=== PATIENT | male | born 1970 | race Caucasian/White ===

== ENCOUNTER 2017-05-18 19:41 | Emergency (ER) | payer SELFPAY ==
--- NOTE | 2017-05-18 20:16 | UC ---
Cardiac HPI - HPI Summary HPI Summary: PT presents with sister. Pt states since Thursday has intermittent left sided chest pain, squeezing Pt had a cardiac cath [address] [facility] - no stents. Pt states has intermittently had paresthesia lUE - states felt like band around left wwrist earlier. sx worse with avctivity and movement. No fever, chills. No sob Pt does not have a PCP has not seen MD in years since stent. Pt take ASA 81mg QD inclduing today At present, no discomfort or sx Pt's medications reviewed this visit - History of Current Complaint Chief Complaint: UCChestPain Stated Complaint: CHEST & LEFT ARM PAIN Time Seen by Provider: 05/18/17 19:58 Hx Obtained From: Patient, Family/Surveyor'S Assistant Onset/Duration: Gradual Onset, Lasting Days Timing: Intermittent Episodes Lasting: Initial Severity: Mild Current Severity: Mild Chest Pain Location: Discrete at:, Left Anterior Character: Tightness Aggravating Factor(s): Exertion Alleviating Factor(s): Rest Associated Signs & Symptoms: Positive: Chest Pain - Allergy/Home Medications Allergies/Adverse Reactions: Allergies Allergy/AdvReac Type Severity Reaction Status Date / Time No Known Allergies Allergy Verified 05/18/17 19:54 Home Medications: Home Medications Aspirin EC Low Dose* [Ecotrin EC Low Dose 81 MG*] 81 mg PO DAILY 05/18/17 [ History Confirmed 05/18/17] Gnc 1 jessy PO DAILY 05/18/17 [History] PMH/Surg Hx/FS Hx/Imm Hx Previously Healthy: Yes Cardiovascular History: Cardiac Disease, Hypertension - Surgical History Surgical History: Yes Surgery Procedure, Year, and Place: cardiac cath-no stents - Family History Known Family History: Positive: Hypertension - Social History Occupation: Employed Full-time Lives: With Family Alcohol Use: Rare Substance Use Type: Marijuana Substance Use Comment - Amount & Last Used: daily usage Smoking Status (MU): Heavy Every Day Tobacco Smoker Type: Smokeless Tobacco Amount Used/How Often: 1 can per week Have You Smoked in the Last Year: Yes When Did the Patient Quit Smoking/Using Tobacco: since age 13 Review of Systems Constitutional: Negative Skin: Negative Cardiovascular: Chest Pain Neurovascular: Other - paresthesia lue All Other Systems Reviewed And Are Negative: Yes Physical Exam Triage Information Reviewed: Yes Appearance: Well-Appearing, No Pain Distress, Well-Nourished Vital Signs: Initial Vital Signs Temp 98 F 05/18/17 19:47 Pulse 96 05/18/17 19:47 Resp 16 05/18/17 19:47 BP 138/99 05/18/17 19:47 Pulse Ox 100 05/18/17 19:47 Vital Signs Reviewed: Yes Eye Exam: Normal Eyes: Positive: Conjunctiva Clear ENT Exam: Normal ENT: Positive: Normal ENT inspection, Hearing grossly normal, Pharynx normal, TMs normal Dental Exam: Normal Neck exam: Normal Neck: Positive: Supple, Nontender Respiratory Exam: Normal Respiratory: Positive: Chest non-tender, Lungs clear, Normal breath sounds, No respiratory distress, No accessory muscle use Cardiovascular Exam: Normal Cardiovascular: Positive: RRR, No Murmur Abdominal Exam: Normal Abdomen Description: Positive: Nontender, No Organomegaly, Soft Bowel Sounds: Positive: Present Musculoskeletal Exam: Normal Neurological Exam: Normal Neurological: Positive: Alert Psychological Exam: Normal Skin Exam: Normal Diagnostics - EKG Cardiac Rate: NL - 95 Cardiac Rhythm: Sinus: Normal Ectopy: PVCs ST Segment: Normal - Assessment/Plan Course Of Treatment: Pt with progressive episodic left sided chest pain with radiation to left arm. pt with h/o cardiac dx, stent years ago. Recommend to ED - pt adamant does not want EMS. to drive. d/w pt risks of leaving - pt leaving [facility]. Will give ASA 81mg x 3 in UC. call to [facility] ED - pt's request - Clinical Impression Provider Diagnoses: chest pain Discharge - Discharge Plan Condition: Stable Disposition: AGAINST MEDICAL ADVICE Patient Education Materials: Chest Pain (ED), Against Medical Advice (ED) Referrals: Hernán Doran DO [Medical Doctor] - Additional Instructions: The doctor that evaluated you today strongly recommends additional testing to evaluate for a heart cause of your chest pain. It was recommended you go by ambulance but you declined. Your sister will drive you to the [facility] ED. If you develop increased symptoms, dizziness or lightheaded or you have any changes, trap puller and call 911
[2017-05-18] MEDS ORDERED: Aspirin Low Dose CHEW TAB* 81 MG PO ONE (20:20)
== END 2017-05-18 20:31 | disposition left against medical advice (07) ==
LOC: UCCORT 19:41
DX: R07.89 Other chest pain (principal); Z79.82 Long term (current) use of aspirin; Z95.5 Presence of coronary angioplasty implant and graft; F12.90 Cannabis use, unspecified, uncomplicated; F17.220 Nicotine dependence, chewing tobacco, uncomplicated
CPT/HCPCS: 93005; 99202; A9270-GY; G0463